=== PATIENT | female | born 1970 | race Two or more races ===

== ENCOUNTER 2025-09-07 13:30 | Inpatient (IN) | payer OTHER, BC ==
[~2025-09-07] VITALS: Ht 157.5 cm; Wt 56.9 kg
--- NOTE | 2025-09-07 13:58 | ED.PDOC ---
GI ASSESSMENT HPI Comments 55y F who presents to the ED for chief complaint of nausea and vomiting. Pt states over the past weekend, pt has been having nausea and vomiting. Pt states earlier this AM, after drinking her morning coffee, pt started to have epigastric abdominal pain. Pt states the pain is constant, 10/10, non-radiating, with no associated exacerbating or relieving factors. Pt otherwise has noted BP of 161/93 with otherwise stable vitals. Pt denies any other symptoms at this time. Chief Complaint: Abdominal Pain Time Seen by MD: 13:55 Reviewed Notes: Nurses Notes, Medications, Allergies Allergies: Coded Allergies: NO KNOWN ALLERGIES (Unverified , 09/07/25) Information Source: Patient Mode of Arrival: Ambulatory Brought in by: self Timing: Days Duration: Since onset Prehospital treatment: None Quality: Aching Vomitus: Soft Stool: Normal Severity: Moderate Recent: None Recent Hx of: None Pain Location: Epigastric Modifying Factors: Nothing Associated sign and symptoms: Nausea, Vomiting, Abdominal Pain Past Medical History PAST MEDICAL HISTORY: Denies Surgical History: BTL, Surgical History (Other): breast augmentation TORCH SHEARER History: Denies all TORCH SHEARER Hx Family History Family History: Reviewed,noncontributory to illness Social History Smoker: Non-Smoker Alcohol: Denies ETOH Use Drugs: Denies Drug Use Lives In: Home Constitutional: denies: chills, diaphoresis, fatigue, fever, malaise, sweats, weakness, others EENTM: denies: blurred vision, double vision, ear bleeding, ear discharge, ear drainage, ear pain, ear ringing, eye pain, eye redness, hearing loss, mouth pain, mouth swelling, nasal discharge, nose bleeding, nose congestion, nose pain, photophobia, tearing, throat pain, throat swelling, voice changes, others Respiratory: denies: cough, hemoptysis, orthopnea, SOB at rest, shortness of breath, SOB with excertion, stridor, wheezing, others Cardiovascular: denies: chest pain, dizzy spells, diaphoresis, Dyspnea on exertion, edema, irregular heart beat, left arm pain, lightheadedness, palpitations, PND, syncope, others Gastrointestinal: reports: abdominal pain, nausea, vomiting; denies: abdomen distended, blood streaked bowels, constipated, diarrhea, dysphagia, difficulty s wallowing, hematemesis, melena, poor appetite, poor fluid intake, rectal bleeding, rectal pain, others Genitourinary: denies: abnormal vagina bleeding, burning, dyspareunia, dysuria, flank pain, frequency, hematuria, incontinence, pain, , vagina discharge, urgency, others Neurological: denies: dizziness, fainting, headache, left sided numbness, left sided weakness, numbness, paresthesia, pre-existing deficit, right sided numbness, right sided weakness, seizure, speech problems, tingling, tremors, weakness, others Musculoskeletal: denies: back pain, gout, joint pain, joint swelling, muscle pain, muscle stiffness, neck pain, others Integumetry: denies: bruises, change in color, change in hair/nails, dryness, laceration, lesions, lumps, rash, wounds, others Allergic/Immunocompromised: denies: Difficulty Healing, Frequent Infections, Hives, Itching, others Hematologic/Lymphatic: denies: anemia, blood clots, easy bleeding, easy bruising, swollen glands, others Endocrine: denies: excessive hunger, excessive sweating, excessive thirst, excessive urination, flushing, intolerance to cold, intolerance to heat, unexplained weight gain, unexplained weight loss, others Psychiatric: denies: anxiety, bipolar disorder, depression, hopeless, panic disorder, schizophrenia, sleepless, suicidal, others All Other Systems: Reviewed and Negative Physical Exam General Appearance: Moderate Distress HEENT: Normal ENT Inspection, Pharynx Normal, TMs Normal Neck: Full Range of Motion, Non-Tender, Normal, Normal Inspection Respiratory: Chest Non-Tender, Lungs Clear, No Accessory Muscle Use, No Respiratory Distress, Normal Breath Sounds Cardiovascular: No Edema, No JVD, No Murmur, No Gallop, Normal Peripheral Pulses, Regular Rate/Rhythm Breast Exam: Deferred Gastrointestinal: No Organomegaly, No Pulsatile Mass, Normal Bowel Sounds, RUQ, Soft, Tenderness Genitalia: Deferred Pelvic: Deferred Rectal: Deferred Extremities: No calf tenderness, Normal capillary refill, No pedal edema Musculoskeletal : Apperance: Normal Neurologic: Alert, iron bender II-XII nml as Tested, No Motor Deficits, Normal Affect, Normal Mood, No Sensory Deficits Cerebellar Function: Normal Reflexes: Normal Skin: Dry, Normal Color, Warm Lymphatic: No Adenopathy Was a procedure done? Was a procedure done?: No GI differential Dx Differential Diagnosis: Cholecystitis, Gastritis/PUD, Gastroenteritis, Pancreatitis, UTI, Dehydration, Food Poisoning, Bacterial, Viral Other Differential Diagnosis gallstones, biliary colic. X-Ray, Labs, Meds, VS Vital Signs Date Time Temp Pulse Resp B/P (MAP) Pulse Ox O2 Delivery O2 Flow Rate FiO2 09/07/25 14:45 69 18 117/80 09/07/25 13:31 97.9 95 20 161/93 95 97.9 Lab Test 09/07/25 14:28 Range/Units White Blood Count 9.9 4.4-10.8 10^3/uL Red Blood Count 4.42 4.0-5.20 10^6/uL Hemoglobin 14.0 12.2-16.2 g/dL Hematocrit 41.0 36.0-46.0 % Mean Corpuscular Volume 92.7 80.0-100.0 fL Mean Corpuscular Hemoglobin 31.6 28.0-32.0 pg Mean Corpuscular Hemoglobin Concent 34.1 32.0-36.0 g/dL Red Cell Distribution Width 13.9 11.8-14.3 % Platelet Count 281 140-450 10^3/uL Mean Platelet Volume 9.1 6.9-10.8 fL Neutrophils (%) (Auto) 73.2 37.0-80.0 % Lymphocytes (%) (Auto) 21.4 10.0-50.0 % Monocytes (%) (Auto) 4.7 0.0-12.0 % Eosinophils (%) (Auto) 0.2 0.0-7.0 % Basophils (%) (Auto) 0.5 0.0-2.0 % Neutrophils # (Auto) 7.3 1.6-8.6 10 ^3/uL Lymphocytes # (Auto) 2.1 0.4-5.4 10 ^3/uL Monocytes # (Auto) 0.5 0-1.3 10 ^3/uL Eosinophils # (Auto) 0 0-0.8 10 ^3/uL Basophils # (Auto) 0 0-0.2 10 ^3/uL Nucleated Red Blood Cells 0.1 % Sodium Level 138 136-145 mmol/L Potassium Level 4.0 3.5-5.1 mmol/L Chloride Level 102 98-107 mmol/L Carbon Dioxide Level 26 20-31 mmol/L Anion Gap 10 5-15 Blood Urea Nitrogen 17 9-23 mg/dL Creatinine 0.79 0.550-1.02 mg/dL Glomerular Filtration Rate Calc 88 >90 mL/min BUN/Creatinine Ratio 21.5 H 10.0-20.0 Serum Glucose 167 H 74-106 mg/dL Calcium Level 10.0 8.7-10.4 mg/dL Total Bilirubin 0.5 0.2-1.0 mg/dL Aspartate Amino Transferase (AST) 26 13-40 U/L Alanine Aminotransferase (ALT) 22 7-40 U/L Alkaline Phosphatase 85 46-116 U/L Total Protein 7.6 5.7-8.2 g/dL Albumin 4.8 3.2-4.8 g/dL Lipase 41 12-53 U/L Current Medications Medications (Trade) Dose Ordered Sig/Hola Route Start Time Stop Time Status Last Admin Ondansetron HCl (Zofran) 4 mg ONCE ONCE IV 09/07/25 14:15 09/07/25 14:16 DC 09/07/25 14:44 Sodium Chloride 1,000 ml @ 1,000 mls/hr Q1H ONCE IVB 09/07/25 14:15 09/07/25 15:14 DC 09/07/25 14:45 Morphine Sulfate 4 mg ONCE ONCE IV 09/07/25 14:15 09/07/25 14:16 DC 09/07/25 14:45 Pantoprazole Sodium (Protonix) 40 mg ONCE ONCE IV 09/07/25 14:15 09/07/25 14:16 DC 09/07/25 14:44 PROCEDURE(s): GBUS - GALLBLADDER Impression: Cholelithiasis IV Hep-Lock has been established The patient was given morphine 4 mg IV push for the pain The patient was given Zofran 4 mg IV push for the nausea The patient was given a 1 L bolus of normal saline The patient was given Protonix 40 mg IV push The liver enzymes and lipase level are within normal limits The CBC and chemistry panel are within normal limits The patient is being admitted at this time The patient understands and agrees with the management. Images Reviewed?: Images reviewed and evaluated by me Time of 1ST Reevaluation: 14:25 Reevaluation 1ST: Unchanged Patient Education/Counseling: Diagnosis, Treatment, Prognosis Family Education/Counseling: No Family Present SEPSIS Sepsis Screen Date sepsis recognized/suspect: Sep 07, 2025 Time Sepsis recognized/suspect: 1332 Recent Procedure: No On Antibiotic Therapy: No Respiratory Rate >20: No Heart Rate >90: No Temp<36 C (96.8 F) or >38.3 C: No SBP <90 or MAP <65 mmHG: No New Acute Mental Status Change: No Is the patient on CPAP, BIPAP,: No Physician Orders Urinalysis (09/07/25 14:05) Heplock Iv (09/07/25 14:05) Gallbladder (09/07/25 14:05) Vital Signs Date Time Temp Pulse Resp B/P (MAP) Pulse Ox O2 Delivery O2 Flow Rate FiO2 09/07/25 14:45 69 18 117/80 09/07/25 13:31 97.9 95 20 161/93 95 97.9 Laboratory Tests Test 09/07/25 14:28 White Blood Count 9.9 10^3/uL (4.4-10.8) Medications Medications Dose Ordered Sig/Hola Route Start Time Stop Time Status Last Admin Dose Admin Morphine Sulfate 4 mg ONCE ONCE IV 09/07/25 14:15 09/07/25 14:16 DC 09/07/25 14:45 Ondansetron HCl 4 mg ONCE ONCE IV 09/07/25 14:15 09/07/25 14:16 DC 09/07/25 14:44 Pantoprazole Sodium 40 mg ONCE ONCE IV 09/07/25 14:15 09/07/25 14:16 DC 09/07/25 14:44 Sodium Chloride 1,000 ml @ 1,000 mls/hr Q1H ONCE IVB 09/07/25 14:15 09/07/25 15:14 DC 09/07/25 14:45 Departure 1 Departure Time of Disposition: 15:39 Impression: Primary Impression: Intractable abdominal pain Additional Impression: Cholelithiasis Qualified Codes: K80.20 - Calculus of gallbladder without cholecystitis without obstruction Disposition: ADMITTED INPATIENT Admit to: Med Surg Condition: Fair Critical Care Note Critical Care Time?: No Stability Stability form required: Yes Unstable for transfer: ED Physician Assesment (Clinical assesment) Heart Score Heart Score: Heart Score Response (Comments) Value History N/A 0 EKG N/A 0 Age N/A 0 Risk Factors N/A 0 Troponin N/A 0 Total 0 I personally scribed for NURA BRAR MD ([email or web address]) on 09/07/25 at 13:58. Electronically submitted by Aayush Donald ([email or web address]). I personally scribed for NURA BRAR MD ([email or web address]) on 09/07/25 at 15:34. Electronically submitted by Aayush Donald ([email or web address]). NURA BRAR MD Sep 07, 2025 13:58
[2025-09-07 14:36] LABS: Hematocrit 41.0 % (36.0-46.0); Hemoglobin 14.0 g/dL (12.2-16.2); Mean Corpuscular Hemoglobin 31.6 pg (28.0-32.0); Mean Corpuscular Volume 92.7 fL (80.0-100.0); Nucleated Red Blood Cells % 0.1 %
[2025-09-07] MEDS: PANTOPRAZOLE 40 MG/10 ML VIAL INJ IV ONE (14:44)
[2025-09-07] MEDS: ONDANSETRON HCL 4 MG/2 ML VIAL IV ONE (14:44)
[2025-09-07] MEDS: MORPHINE SULFATE 4 MG/ML SYR/VIAL IV ONE (14:45)
[2025-09-07] MEDS: SODIUM CHLORIDE 0.9% 1,000 ML IVB ONE (14:45)
[2025-09-07 15:01] LABS: Alanine Aminotransferase 22 U/L (7-40); Alkaline Phosphatase 85 U/L (46-116); Anion Gap 10 (5-15); BUN/Creatinine Ratio 21.5 (10.0-20.0); Blood Urea Nitrogen 17 mg/dL (9-23); Calcium 10.0 mg/dL (8.7-10.4); Carbon Dioxide 26 mmol/L (20-31); Chloride 102 mmol/L (98-107); Lipase 41 U/L (12-53); Potassium 4.0 mmol/L (3.5-5.1); Sodium 138 mmol/L (136-145); Total Protein 7.6 g/dL (5.7-8.2)
[2025-09-07 15:02] LABS: Bilirubin, Total 0.5 mg/dL (0.2-1.0)
[2025-09-07 15:03] LABS: Albumin 4.8 g/dL (3.2-4.8); Glucose 167 mg/dL (74-106)
--- NOTE | 2025-09-07 15:33 | DVH ---
Technique: Real-time ultrasound imaging of the abdomen was performed with grayscale and color Doppler. Indication: pain Comparison: None Findings: Liver measures 13.5 cm. It is unremarkable in echogenicity and echotexture without focal mass. Portal vein is normal in caliber and demonstrates normal hepatopetal flow. Gallbladder demonstrates cholelithiasis. There is no pericholecystic fluid. The wall thickness is normal. The common bile duct measures 6 mm. No intrahepatic biliary ductal dilatation. The right kidney measures 9 cm. There is no hydronephrosis or sonographic evidence of nephrolithiasis. The visualized portion of the pancreas is unremarkable. Impression: Cholelithiasis
--- NOTE | 2025-09-07 17:03 | DVHHPRES ---
History of Present Illness Resident Creating Document: ALLAN PRICE RESIDENT History of Present Illness 55-year-old female with a past medical history of hyperlipidemia and gallstones presented in the ED with complaints of intractable vomiting. Patient mentioned that she has been having almost daily episodes of vomiting since morning which is initially clear but later was yellowish in color. Patient mentioned that she also had abdominal pain which was epigastric in location, constant, 10/10, non- radiating, with no associated exacerbating or relieving factors. Patient has a previous history of gallstones. She denied any chest pain, shortness of breath, palpitations, headache, dizziness, constipation, diarrhea. Past medical history Hyperlipidemia Cholelithiasis Past surgical history No recent surgery Medication history Rosuvastatin Social history Patient denied smoking, alcohol, marijuana or other drug intake Lives with Allergic history Not known allergies Family history Diabetes mellitus Review of Systems Review of Systems DESCRIBED IN THE HPI Allergies: Coded Allergies: NO KNOWN ALLERGIES (Unverified , 09/07/25) Exam Vital Signs Vital Signs Date Time Temp Pulse Resp B/P (MAP) Pulse Ox O2 Delivery O2 Flow Rate FiO2 09/07/25 14:45 69 18 117/80 09/07/25 13:31 97.9 95 97.9 Exam Examination General Appearance: Alert, Oriented X3, Cooperative, No acute distress HEENT: EOMI Respiratory: Clear to auscultation, Normal air movement Cardiovascular: Regular rate, Normal S1, Normal S2 Abdominal: Normal bowel sounds, mild epigastric tenderness Extremities: No cyanosis, No edema, Normal pulses, No tenderness/swelling Skin: No rashes, No breakdown Neuro: Normal speech and tone Labs/Xrays Labs Test 09/07/25 14:28 Range/Units White Blood Count 9.9 4.4-10.8 10^3/uL Red Blood Count 4.42 4.0-5.20 10^6/uL Hemoglobin 14.0 12.2-16.2 g/dL Hematocrit 41.0 36.0-46.0 % Mean Corpuscular Volume 92.7 80.0-100.0 fL Mean Corpuscular Hemoglobin 31.6 28.0-32.0 pg Mean Corpuscular Hemoglobin Concent 34.1 32.0-36.0 g/dL Red Cell Distribution Width 13.9 11.8-14.3 % Platelet Count 281 140-450 10^3/uL Mean Platelet Volume 9.1 6.9-10.8 fL Neutrophils (%) (Auto) 73.2 37.0-80.0 % Lymphocytes (%) (Auto) 21.4 10.0-50.0 % Monocytes (%) (Auto) 4.7 0.0-12.0 % Eosinophils (%) (Auto) 0.2 0.0-7.0 % Basophils (%) (Auto) 0.5 0.0-2.0 % Neutrophils # (Auto) 7.3 1.6-8.6 10 ^3/uL Lymphocytes # (Auto) 2.1 0.4-5.4 10 ^3/uL Monocytes # (Auto) 0.5 0-1.3 10 ^3/uL Eosinophils # (Auto) 0 0-0.8 10 ^3/uL Basophils # (Auto) 0 0-0.2 10 ^3/uL Nucleated Red Blood Cells 0.1 % Sodium Level 138 136-145 mmol/L Potassium Level 4.0 3.5-5.1 mmol/L Chloride Level 102 98-107 mmol/L Carbon Dioxide Level 26 20-31 mmol/L Anion Gap 10 5-15 Blood Urea Nitrogen 17 9-23 mg/dL Creatinine 0.79 0.550-1.02 mg/dL Glomerular Filtration Rate Calc 88 >90 mL/min BUN/Creatinine Ratio 21.5 H 10.0-20.0 Serum Glucose 167 H 74-106 mg/dL Calcium Level 10.0 8.7-10.4 mg/dL Total Bilirubin 0.5 0.2-1.0 mg/dL Aspartate Amino Transferase (AST) 26 13-40 U/L Alanine Aminotransferase (ALT) 22 7-40 U/L Alkaline Phosphatase 85 46-116 U/L Total Protein 7.6 5.7-8.2 g/dL Albumin 4.8 3.2-4.8 g/dL Lipase 41 12-53 U/L SEPSIS Sepsis Screen Date sepsis recognized/suspect: Sep 07, 2025 Time Sepsis recognized/suspect: 1331 Recent Procedure: No On Antibiotic Therapy: No Respiratory Rate >20: No Heart Rate >90: No Temp<36 C (96.8 F) or >38.3 C: No SBP <90 or MAP <65 mmHG: No New Acute Mental Status Change: No Is the patient on CPAP, BIPAP,: No Physician Orders Urinalysis (09/07/25 14:05) Heplock Iv (09/07/25 14:05) Gallbladder (09/07/25 14:05) Drug Screen (09/07/25 16:52) Chest Xray 1 View (09/07/25 16:52) Npo Except For Medications (09/07/25 16:52) * Surgical Consult (09/07/25 16:52) Sodium Chloride 0.9% (09/07/25 17:00) Admit (09/07/25 16:52) Oxygen By Nasal Cannula (09/07/25 16:52) Stat Ekg For Chest Pain (09/07/25 16:52) Notify Md Of Changes From Base (09/07/25 16:52) [place] Diver For 24 Hours (09/07/25 16:52) Emergency Dysrhythmia Protocol (09/07/25 16:52) Rhythm Strips Once Every Shift (09/07/25 16:52) Vital Signs Date Time Temp Pulse Resp B/P (MAP) Pulse Ox O2 Delivery O2 Flow Rate FiO2 09/07/25 14:45 69 18 117/80 09/07/25 13:31 97.9 95 20 161/93 95 97.9 Laboratory Tests Test 09/07/25 14:28 White Blood Count 9.9 10^3/uL (4.4-10.8) Medications Medications Dose Ordered Sig/Hola Route Start Time Stop Time Status Last Admin Dose Admin Morphine Sulfate 4 mg ONCE ONCE IV 09/07/25 14:15 09/07/25 14:16 DC 09/07/25 14:45 4 MG Ondansetron HCl 4 mg ONCE ONCE IV 09/07/25 14:15 09/07/25 14:16 DC 09/07/25 14:44 4 MG Pantoprazole Sodium 40 mg ONCE ONCE IV 09/07/25 14:15 09/07/25 14:16 DC 09/07/25 14:44 40 MG Sodium Chloride 1,000 ml @ 1,000 mls/hr Q1H ONCE IVB 09/07/25 14:15 09/07/25 15:14 DC 09/07/25 14:45 1,000 MLS/HR Assessment/Plan Assessment/Plan Assessment/plan # intractable vomiting # cholelithiasis -IV fluids NPO Surgical consult Gallbladder ultrasound reveals cholelithiasis # hyperlipidemia -we will resume home meds , currently NPO Code status discussed with the patient for greater than 21 minutes, full code Case discussion with Dr. Pimentel Plan discussed with: Patient, Other My Orders Orders - ALLAN PRICE Procedure Category Date Status Time Drug Screen LAB 09/07/25 Logged 16:52 Chest Xray 1 View XY 09/07/25 Logged 16:52 Npo Except For EDD 09/07/25 In Process Medications 16:52 * Surgical Consult CONS 09/07/25 Transmitted 16:52 Sodium Chloride 0.9% PHA 09/07/25 Logged 17:00 Admit ADMIT 09/07/25 Transmitted 16:52 Oxygen By Nasal RT 09/07/25 Transmitted Cannula 16:52 Stat Ekg For Chest EDD 09/07/25 In Process Pain 16:52 Notify Md Of Changes [facility] 09/07/25 In Process From Base 16:52 [place] Diver For [facility] 09/07/25 In Process 24 Hours 16:52 Emergency Dysrhythmia [facility] 09/07/25 In Process Protocol 16:52 Rhythm Strips Once [facility] 09/07/25 In Process Every Shift 16:52 Date of Service: Sep 07, 2025 Billing Provider: JAIME PIMENTEL MD Common Visit Codes: [id number] INP/OBS CARE (HIGH) Secondary Visit Codes: [id number] CARE PLAN 30 MINUTES ALLAN PRICE RESIDENT Sep 07, 2025 17:03 JAIME PIMENTEL MD Sep 08, 2025 01:50
[2025-09-07] MEDS: ONDANSETRON HCL 4 MG/2 ML VIAL IV PRN (17:50)
[2025-09-07] MEDS: MORPHINE SULFATE INJ 2 MG/ml SYRG IV PRN (17:51)
[2025-09-07] MEDS: MORPHINE SULFATE 4 MG/ML SYR/VIAL ONE (17:51)
--- NOTE | 2025-09-07 18:23 | DVH ---
CHEST RADIOGRAPH Indication: interactable vomitting Technique: XY CHEST XRAY 1 VIEW Comparison: None FINDINGS: The cardiac silhouette is unremarkable. The lungs demonstrate no pulmonary airspace consolidation. The pulmonary vasculature is unremarkable. There is no pleural effusion. There is no pneumothorax. IMPRESSION: No pulmonary airspace consolidation.
[2025-09-07 18:53] LABS: INR 0.97 (0.9-1.15); Partial Thromboplastin Time 21.9 SEC (24.5-34.5); Prothrombin Time 10.3 sec (9.3-11.8)
[2025-09-08] VITALS (7 sets, daily range): BP systolic 106–130; BP diastolic 57–68; PULSE 66–75; RESP 16; TEMP 98.2–98.8; O2SAT 96–100
[2025-09-08] MEDS: SODIUM CHLORIDE 0.9% 1,000 ML IV ONE (01:13)
[2025-09-08 01:41] LABS: Urine Protein, UAD TRACE (Negative)
[2025-09-08 01:51] LABS: Cannabinoid Screen, Urine Neg (NEGATIVE)
[2025-09-08 01:55] LABS: Amphetamine Screen, Urine Neg (NEGATIVE); Barbiturate Scree,Urine Neg (NEGATIVE); Benzodiazephine Screen, Urine Neg (NEGATIVE); Cocaine Screen, Urine Neg (NEGATIVE); Opiate Scree,Urine Pos (NEGATIVE); Phencyclidine Screen, Urine Neg (NEGATIVE)
[2025-09-08] MEDS ORDERED: ROSU10TA16 PO (02:07)
[2025-09-08 07:50] LABS: Hematocrit 37.4 % (36.0-46.0); Hemoglobin 12.5 g/dL (12.2-16.2); Mean Corpuscular Hemoglobin 30.7 pg (28.0-32.0); Mean Corpuscular Volume 92.2 fL (80.0-100.0); Nucleated Red Blood Cells % 0.0 %
[2025-09-08 07:59] LABS: Alanine Aminotransferase 17 U/L (7-40); Albumin 4.4 g/dL (3.2-4.8); Alkaline Phosphatase 74 U/L (46-116); Anion Gap 10 (5-15); BUN/Creatinine Ratio 14.5 (10.0-20.0); Blood Urea Nitrogen 12 mg/dL (9-23); Calcium 9.6 mg/dL (8.7-10.4); Carbon Dioxide 28 mmol/L (20-31); Chloride 103 mmol/L (98-107); Glucose 83 mg/dL (74-106); Magnesium 2.0 mg/dL (1.6-2.6); Potassium 3.9 mmol/L (3.5-5.1); Sodium 141 mmol/L (136-145); Total Protein 6.8 g/dL (5.7-8.2)
[2025-09-08 08:00] LABS: Bilirubin, Total 0.6 mg/dL (0.2-1.0)
[2025-09-08] MEDS ORDERED: MORPHINE SULFATE 4 MG/ML SYR/VIAL IV PRN (09:15)
[2025-09-08] MEDS: PANTOPRAZOLE 40 MG/10 ML VIAL INJ IV SCH (10:00)
[2025-09-08] MEDS: KETOROLAC TROMETH 30 MG/ML 1ML VIAL IV ONE (11:27)
--- NOTE | 2025-09-08 11:59 | DVHINCON2 ---
Consultation - Surgical Date Seen: Sep 08, 2025 Referring Physician Reason for Consultation Cholecystitis History of Present Illness History of Present Illness Mrs. Wise is a 55-year-old female who presented to the hospital with an episode of epigastric pain that started yesterday, associated with nausea but no vomiting. She has had these episodes in the past and now she has gallstones. At the moment states that she does not have any pain at all. Denies fevers, chills, changes in urinary or stooling habits, acholic stools. Past Medical/Surgical History Past Medical/Surgical History Past medical history hyperlipidemia Past surgical history denies Family and Social History Family and Social History Family history noncontributory ETOH occasional T Ob/drugs denies Allergies and medications Allergies: Coded Allergies: NO KNOWN ALLERGIES (Unverified , 09/07/25) Home Meds Reported Medications Rosuvastatin Calcium (Crestor) 10 Mg Tab, 1 TAB PO DAILY, #30 TAB 5 Refills 09/08/25 Review of systems Review of Systems: Deferred Examination Vital signs Vital Signs Date Time Temp Pulse Resp B/P (MAP) Pulse Ox O2 Delivery O2 Flow Rate FiO2 09/08/25 09:00 98.2 75 16 130/65 (86) 98 98.2 09/08/25 01:42 Room Air* 0 21 Medications Current Medications Medications (Trade) Dose Ordered Sig/Hola Route PRN Reason Start Time Stop Time Status Last Admin Ondansetron HCl (Zofran) 4 mg Q6HPRN PRN IV NAUSEA / VOMITING 09/07/25 17:15 09/08/25 01:21 Pantoprazole Sodium (Protonix) 40 mg DAILY IV 09/08/25 10:00 09/08/25 10:00 Morphine Sulfate 1 mg Q6HP PRN IV SEVERE PAIN (7-10 PAIN SCALE) 09/07/25 17:15 09/08/25 09:10 DC 09/07/25 17:51 Morphine Sulfate 1 mg Q6HP PRN IV SEVERE PAIN (7-10 PAIN SCALE) 09/08/25 09:15 Laboratory Labs Test 09/08/25 07:11 09/08/25 01:15 09/07/25 14:28 Range/Units White Blood Count 8.5 4.4-10.8 10^3/uL Red Blood Count 4.06 4.0-5.20 10^6/uL Hemoglobin 12.5 12.2-16.2 g/dL Hematocrit 37.4 36.0-46.0 % Mean Corpuscular Volume 92.2 80.0-100.0 fL Mean Corpuscular Hemoglobin 30.7 28.0-32.0 pg Mean Corpuscular Hemoglobin Concent 33.3 32.0-36.0 g/dL Red Cell Distribution Width 13.7 11.8-14.3 % Platelet Count 255 140-450 10^3/uL Mean Platelet Volume 9.2 6.9-10.8 fL Neutrophils (%) (Auto) 70.6 37.0-80.0 % Lymphocytes (%) (Auto) 20.7 10.0-50.0 % Monocytes (%) (Auto) 8.2 0.0-12.0 % Eosinophils (%) (Auto) 0.2 0.0-7.0 % Basophils (%) (Auto) 0.3 0.0-2.0 % Neutrophils # (Auto) 6.0 1.6-8.6 10 ^3/uL Lymphocytes # (Auto) 1.8 0.4-5.4 10 ^3/uL Monocytes # (Auto) 0.7 0-1.3 10 ^3/uL Eosinophils # (Auto) 0 0-0.8 10 ^3/uL Basophils # (Auto) 0 0-0.2 10 ^3/uL Nucleated Red Blood Cells 0.0 % Sodium Level 141 136-145 mmol/L Potassium Level 3.9 3.5-5.1 mmol/L Chloride Level 103 98-107 mmol/L Carbon Dioxide Level 28 20-31 mmol/L Anion Gap 10 5-15 Blood Urea Nitrogen 12 9-23 mg/dL Creatinine 0.83 0.550-1.02 mg/dL Glomerular Filtration Rate Calc 83 >90 mL/min BUN/Creatinine Ratio 14.5 10.0-20.0 Serum Glucose 83 74-106 mg/dL Calcium Level 9.6 8.7-10.4 mg/dL Magnesium Level 2.0 1.6-2.6 mg/dL Total Bilirubin 0.6 0.2-1.0 mg/dL Aspartate Amino Transferase (AST) 21 13-40 U/L Alanine Aminotransferase (ALT) 17 7-40 U/L Alkaline Phosphatase 74 46-116 U/L Total Protein 6.8 5.7-8.2 g/dL Albumin 4.4 3.2-4.8 g/dL Urine Color Light-yellow Yellow Urine Clarity Clear Clear Urine pH 6.0 5.0-9.0 Urine Specific [place] 1.027 1.001-1.035 Urine Protein Trace H Negative Urine Ketones 1+ H Negative Urine Blood Negative Negative /uL Urine Nitrite Negative Negative Urine Bilirubin Negative Negative Urine Urobilinogen Normal Negative mg/dL Urine Leukocyte Esterase 2+ Negative /uL Urine RBC 11 0 - 4 /hpf Urine Microscopic WBC 21 H 0-5 /HPF Urine Squamous Epithelial Cells Few <5 /hpf Urine Bacteria None seen None Seen /hpf Urine Mucus Few None Seen Urine Glucose 1+ H Normal mg/dL Urine Opiates Screen Pos NEGATIVE Urine Fentanyl Screen Neg NEGATIVE Urine Barbiturates Screen Neg NEGATIVE Urine Phencyclidine Screen Neg NEGATIVE Urine Amphetamines Screen Neg NEGATIVE Urine Benzodiazepines Screen Neg NEGATIVE Urine Cocaine Screen Neg NEGATIVE Urine Cannabinoids Screen Neg NEGATIVE Prothrombin Time 10.3 9.3-11.8 sec Prothrombin Time INR 0.97 0.9-1.15 Activated Partial Thromboplast Time 21.9 L 24.5-34.5 SEC Lipase 41 12-53 U/L Examination: GENERAL:Normal (AAO x3), HEENT:Normal (No icterus, neck supple), LUNGS:Normal (Nonlabored breathing with symmetric expansion), ABDOMEN:Normal (Nondistended, soft, depressible, nontender), SKIN:Normal (No jaundice) Problem List/Assessment/Plan Problems: (1) Cholelithiasis Assessment and Plan Mrs. Wise is a 55-year-old female who presented with symptomatic cholelithiasis. Ultrasound shows many gallstones without gallbladder wall thickening or pericholecystic fluid. Given that she has a multiple episodes in the past I offered laparoscopic cholecystectomy. Patient refused surgery given that she is feeling well and wants to do it in an outpatient basis, as she has to arrange her scheduled before having surgery. 1. Okay to discharge per surgical standpoint, no antibiotics required, patient does not have acute cholecystitis. 2. I provided my office information, please call for appointment at your earliest convenience. 3. Continue low-fat diet Plan discussed with Plan discussed with: Patient Visit Coding Surgery Date of Service if different f: Sep 08, 2025 Billing Provider: DAVID BUNDY MD Surgery Visit Codes: [id number] - INP CONSULT <110 MIN DAVID BUNDY MD Sep 08, 2025 11:59
--- NOTE | 2025-09-08 15:56 | DVHDSRES ---
Discharge Summary Date of Admission Resident Creating Document: RAMONITA SIMMS RESIDENT Sep 07, 2025 at 16:52 Date of Discharge: Sep 08, 2025 Admitting Diagnosis intractable vomiting, likely due to cholelithiasis Labs/Diagnostic Data: Laboratory Results Test 09/08/25 07:11 09/08/25 01:15 09/07/25 14:28 White Blood Count 8.5 10^3/uL (4.4-10.8) Red Blood Count 4.06 10^6/uL (4.0-5.20) Hemoglobin 12.5 g/dL (12.2-16.2) Hematocrit 37.4 % (36.0-46.0) Mean Corpuscular Volume 92.2 fL (80.0-100.0) Mean Corpuscular Hemoglobin 30.7 pg (28.0-32.0) Mean Corpuscular Hemoglobin Concent 33.3 g/dL (32.0-36.0) Red Cell Distribution Width 13.7 % (11.8-14.3) Platelet Count 255 10^3/uL (140-450) Mean Platelet Volume 9.2 fL (6.9-10.8) Neutrophils (%) (Auto) 70.6 % (37.0-80.0) Lymphocytes (%) (Auto) 20.7 % (10.0-50.0) Monocytes (%) (Auto) 8.2 % (0.0-12.0) Eosinophils (%) (Auto) 0.2 % (0.0-7.0) Basophils (%) (Auto) 0.3 % (0.0-2.0) Neutrophils # (Auto) 6.0 10 ^3/uL (1.6-8.6) Lymphocytes # (Auto) 1.8 10 ^3/uL (0.4-5.4) Monocytes # (Auto) 0.7 10 ^3/uL (0-1.3) Eosinophils # (Auto) 0 10 ^3/uL (0-0.8) Basophils # (Auto) 0 10 ^3/uL (0-0.2) Nucleated Red Blood Cells 0.0 % Sodium Level 141 mmol/L (136-145) Potassium Level 3.9 mmol/L (3.5-5.1) Chloride Level 103 mmol/L (98-107) Carbon Dioxide Level 28 mmol/L (20-31) Anion Gap 10 (5-15) Blood Urea Nitrogen 12 mg/dL (9-23) Creatinine 0.83 mg/dL (0.550-1.02) Glomerular Filtration Rate Calc 83 mL/min (>90) BUN/Creatinine Ratio 14.5 (10.0-20.0) Serum Glucose 83 mg/dL (74-106) Calcium Level 9.6 mg/dL (8.7-10.4) Magnesium Level 2.0 mg/dL (1.6-2.6) Total Bilirubin 0.6 mg/dL (0.2-1.0) Aspartate Amino Transferase (AST) 21 U/L (13-40) Alanine Aminotransferase (ALT) 17 U/L (7-40) Alkaline Phosphatase 74 U/L (46-116) Total Protein 6.8 g/dL (5.7-8.2) Albumin 4.4 g/dL (3.2-4.8) Urine Color Light-yellow (Yellow) Urine Clarity Clear (Clear) Urine pH 6.0 (5.0-9.0) Urine Specific [place] 1.027 (1.001-1.035) Urine Protein Trace (Negative) Urine Ketones 1+ (Negative) Urine Blood Negative /uL (Negative) Urine Nitrite Negative (Negative) Urine Bilirubin Negative (Negative) Urine Urobilinogen Normal mg/dL (Negative) Urine Leukocyte Esterase 2+ /uL (Negative) Urine RBC 11 /hpf (0 - 4) Urine Microscopic WBC 21 /HPF (0-5) Urine Squamous Epithelial Cells Few /hpf (<5) Urine Bacteria None seen /hpf (None Seen) Urine Mucus Few (None Seen) Urine Glucose 1+ mg/dL (Normal) Urine Opiates Screen Pos (NEGATIVE) Urine Fentanyl Screen Neg (NEGATIVE) Urine Barbiturates Screen Neg (NEGATIVE) Urine Phencyclidine Screen Neg (NEGATIVE) Urine Amphetamines Screen Neg (NEGATIVE) Urine Benzodiazepines Screen Neg (NEGATIVE) Urine Cocaine Screen Neg (NEGATIVE) Urine Cannabinoids Screen Neg (NEGATIVE) Prothrombin Time 10.3 sec (9.3-11.8) Prothrombin Time INR 0.97 (0.9-1.15) Activated Partial Thromboplast Time 21.9 SEC (24.5-34.5) Lipase 41 U/L (12-53) Other Laboratory Tests 09/08/25 07:11 Brief Hx & Hospital Course: Bart Wise is a 55-year-old female with past medical history of dyslipidemia and gallstones who presented in the ED with the chief complaint of intractable vomiting since 1 day. The patient mentioned she has been having episodes of vomiting since yesterday which were initially clear and then turned to green. Patient mentioned she also had epigastric pain rated as 7/10 in intensity, nonradiating, associated with no aggravating or relieving factors. The patient mentioned she has a history of gallstones in the past but was asymptomatic as she was diet controlled. She stated that she ate some fried fatty food at [facility], post which she started having the pain and vomiting. She denied any fever, chills oir urinary symptoms. Urinalysis was positive for UTI. On evaluation today, the patient no longer complained of any nausea, vomiting or abdominal pain. Surgery evaluated the patient and she was cleared for discharge. Patient was discharged home in a stable condition on oral antibiotics for 5 days for the UTI. All medications and recommendations were thoroughly explained to the patient and she demonstrated understanding of the same. She was recommended to follow-up in [facility] clinic, with PCP and with surgeon in the outpatient office. Past medical history: Dyslipidemia, gallstones Past surgical history: None Home medications: Rosuvastatin Social & Personal history: Lives at home with family, occasional alcohol consumption, denies smoking or other drug use Allergies: No known allergies General Appearance: Cooperative. Well developed. Well nourished. NAD Head Exam: Normal inspection Neck Exam: Normal inspection. Non-tender. Normal alignment Pulmonary/Respiratory: Chest non-tender. Clear bilateral breath sounds, no crackles, no wheezing. Cardiovascular/Chest: Regular rate and rhythm. No murmurs. No JVD. Peripheral Pulses: 2+ Radial (R). 2+ Radial (L). 2+ Pedal (R). 2+ Pedal (L) Abdominal Exam: Normal bowel sounds. Soft. normal abdomen, no visible veins, Nontender. No hepatospenomegaly. No masses Ankle Exam: Negative ankle edema Lower extremities: Negative lower extremity edema Neuro/Mental Status: A&O x4. Coherent. Thoughts/Psych: Normal thought pattern. Appropriate mood and affect. Good judgement and insight Skin Exam: Normal inspection. Normal color. Warm. Dry Operations or Procedures 1.PROCEDURE(s): GBUS - GALLBLADDER REASON: pain ORDER NUMBER(s): [id number], ACCESSION NUMBER(s): [id number] Technique: Real-time ultrasound imaging of the abdomen was performed with grayscale and color Doppler. Indication: pain Comparison: None Findings: Liver measures 13.5 cm. It is unremarkable in echogenicity and echotexture without focal mass. Portal vein is normal in caliber and demonstrates normal hepatopetal flow. Gallbladder demonstrates cholelithiasis. There is no pericholecystic fluid. The wall thickness is normal. The common bile duct measures 6 mm. No intrahepatic biliary ductal dilatation. The right kidney measures 9 cm. There is no hydronephrosis or sonographic evidence of nephrolithiasis. The visualized portion of the pancreas is unremarkable. Impression: Cholelithiasis 2.PROCEDURE(s): CXR1 - CHEST XRAY 1 VIEW REASON: interactable vomitting ORDER NUMBER(s): [id number], ACCESSION NUMBER(s): [id number] CHEST RADIOGRAPH Indication: interactable vomitting Technique: XY CHEST XRAY 1 VIEW Comparison: None FINDINGS: The cardiac silhouette is unremarkable. The lungs demonstrate no pulmonary airspace consolidation. The pulmonary vasculature is unremarkable. There is no pleural effusion. There is no pneumothorax. IMPRESSION: No pulmonary airspace consolidation. Condition at Discharge: Fair Final Diagnosis/Problems List Intractable abdominal pain and vomiting likely due to below Biliary colic Cholelithiasis Hyperlipidemia Discharge Disposition: Home Discharge Instruct/Medications Diet: Regular Diet comment: avoid fried, fatty foods Activity: No Restrictions, As Tolerated Follow Up/Referral: follow up in dc clinic in 1 week follow up with PCP in 1-2 weeks Medications: as per EMR Scheduled Rosuvastatin Calcium (Crestor), 1 TAB PO DAILY, (Reported) Discharge Statement: "Patient was advised to return to the ER or call 911 if any headaches, dizziness, shortness of breath, chest pain, abdominal pain, bleeding, fevers, or worsening of medical condition. Patient was counseled about treatment plan, medications, possible side effects, patientverbalized understanding. All questions were answered to the best of my ability. This discharge took greater then 30 minutes in planning, reviewing documentation, counseling the patient, and discussing with other team members." ASSESSMENT ASSESSMENT Assessment acute intractable abdominal pain, likely due to cholelithiasis Visit Coding STANDARD RES Billing Provider: JULIA MATTHEW MD Date of Service if different f: Sep 08, 2025 Common Visit Codes: 60954-WQK/OBS DISCH DAY >30min RAMONITA SIMMS RESIDENT Sep 08, 2025 15:56
[2025-09-08] MEDS ORDERED: NITR-52 PO (16:05)
== END 2025-09-08 16:06 | disposition home or self-care (01) | DRG 446 ==
LOC: ER 13:30 → OVERFLOW 16:52
PROVIDERS: ADMIT Student in an Organized Health Care Education/Training Program; ATTEND Student in an Organized Health Care Education/Training Program
DX: K80.20 Calculus of gallbladder without cholecystitis without obstruction (principal); E78.5 Hyperlipidemia, unspecified; Z53.20 Procedure and treatment not carried out because of patient's decision for unspecified reasons; Z98.51 Tubal ligation status; Z41.1 Encounter for cosmetic surgery; Z83.3 Family history of diabetes mellitus
CPT/HCPCS: 36415; 71045; 76705; 80053; 80307; 81001; 83690; 83735; 85025; 85610; 85730; 96361; 96374; 96375; G0378; J1885; J2405; J2470